=== PATIENT | male | born 2000 | race Hispanic/Latino ===

== ENCOUNTER 2018-04-28 11:36 | Emergency (ER) | payer SELFPAY ==
[2018-04-28] MEDS ORDERED: ACETAMINOPHEN EXTRA STRENGTH 500 MG TABLET ONE (12:34)
== END 2018-04-28 14:07 | disposition home or self-care (01) ==
LOC: EDH 11:36
DX: S06.0X0A Concussion without loss of consciousness, initial encounter (principal); F90.9 Attention-deficit hyperactivity disorder, unspecified type; V00.131A Fall from skateboard, initial encounter; Y93.51 Activity, roller skating (inline) and skateboarding; Y92.39 Other specified sports and athletic area as the place of occurrence of the external cause; Y99.8 Other external cause status
CPT/HCPCS: 72040

== ENCOUNTER 2021-02-25 06:23 | Emergency (ER) | payer SELFPAY ==
[~2021-02-25] VITALS: Ht 170.2 cm; Wt 81.6 kg
[2021-02-25 06:28] VITALS: BP 135/75
== END 2021-02-25 08:34 | disposition home or self-care (01) ==
LOC: EDH 06:23
DX: S61.211A Laceration without foreign body of left index finger without damage to nail, initial encounter (principal); W26.8XXA Contact with other sharp object(s), not elsewhere classified, initial encounter; Y93.89 Activity, other specified; Y92.89 Other specified places as the place of occurrence of the external cause; Y99.8 Other external cause status
CPT/HCPCS: 12001; 99282

== ENCOUNTER 2023-12-13 11:45 | Emergency (ER) | payer OTHER, BC ==
[~2023-12-13] VITALS: Ht 172.7 cm; Wt 99.8 kg
[2023-12-13 12:00] VITALS: BP 130/84; PULSE 81; RESP 16; O2SAT 97
[2023-12-13] MEDS: IBUPROFEN 800 MG TAB PO ONE (12:02)
[2023-12-13] MEDS ORDERED: IBUP-2077 PO (12:34)
== END 2023-12-13 13:09 | disposition home or self-care (01) ==
LOC: EDH 11:45
DX: S93.401A Sprain of unspecified ligament of right ankle, initial encounter (principal); X50.1XXA Overexertion from prolonged static or awkward postures, initial encounter; Y93.89 Activity, other specified; Y92.89 Other specified places as the place of occurrence of the external cause; Y99.8 Other external cause status
CPT/HCPCS: 29515; 73610